=== PATIENT | female | born 2000 | race African-American/Black ===

== ENCOUNTER 2022-02-14 09:51 | Emergency (ER) | payer OTHER, SELFPAY ==
[2022-02-14 10:30] VITALS: BP 118/61; PULSE 54; RESP 14; TEMP 36.7; O2SAT 99; BMI 30.9
[2022-02-14] MEDS: ACETAMINOPHEN 325 MG TABLET 650 MG PO (10:42)
[2022-02-14] MEDS: PHENAZOPYRIDINE 100 MG TABLET PO (10:42)
[2022-02-14 11:41] LABS: RBC Urine None Seen (0-5/HPF); Squamous Epithelial Cell Urine 1-5 /HPF (0-5/HPF); WBC Urine 1-5/HPF (0-5/HPF)
[2022-02-14 11:42] LABS: Bacteria Urine None Seen; Culture Indicated Urine Cult Not Indicated; Mucus Urine 1+ (Negative)
[2022-02-14 13:58] VITALS: O2SAT 99
[2022-02-14 13:59] VITALS: BP 103/59; PULSE 53; RESP 20; O2SAT 98
[2022-02-14 14:00] VITALS: BP 103/59; PULSE 53; RESP 14; TEMP 36.7; O2SAT 98
--- NOTE | 2022-02-14 14:22 | ED_ITS ---
HPI - Female Genitourinary <MURRAY Cardenas - Last Filed: 02/14/22 16:40> General Chief complaint: Urogenital-Female Stated complaint: abd pain /burning when pee/ t-14 Time Seen by Provider: 02/14/22 11:10 Source: patient Mode of arrival: Ambulatory History of Present Illness HPI Narrative: This is a 21-year-old female presents to the emergency department with dysuria that started approximately 2 weeks ago. 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 Since that she had her menses and is not concerned about . She denies fever, chills, flank pain, abnormal stool, upper respiratory infection, or other symptom. Complains of vaginal itching and abnormal discharge. Denies any rash or injury. Related Data Previous Rx's Medication Instructions Recorded doxycycline hyclate 100 mg tablet 100 mg PO BID 14 days #28 tabs 02/14/22 metronidazole 0.75 % topical gel 1 applic topical BEDTIME #45 grams 02/14/22 Allergies Allergy/AdvReac Type Severity Reaction Status Date / Time No Known Drug Allergies Allergy Verified 02/14/22 10:34 Review of Systems <MURRAY Cardenas - Last Filed: 02/14/22 16:40> Review of Systems ROS Unobtainable: All systems reviewed & are unremarkable except as noted in HPI and below Patient History <MURRAY Cardenas - Last Filed: 02/14/22 16:40> alcohol intake frequency: holidays/special occasions only Substance Use Type: does not use Exam <MURRAY Cardenas - Last Filed: 02/14/22 16:40> Narrative Exam Narrative: Reviewed vitals signs and nursing notes. General: cooperative, comfortable, in no acute distress, well groomed HEENT: symmetrical facial expressions, moist mucous membranes GI: abdomen soft, nontender to palpation, nondistended, without masses, rebound tenderness or exquisite tenderness with exam. Contract Admin: Pelvic exam completed by myself, abnormal vaginal discharge, white, chunky, without foreign body, without odor or rash, without cervicitis, or intravaginal bleeding MSK: moves all extremities, neurovascularly intact, no weakness, normal tone Skin: brisk capillary refill, without pallor or erythema Neuro: normal speech and cognition, A&O x3, ambulatory, clear speech Psych: mental status is grossly normal, congruent mood, normal affect, pleasant and cooperative Initial Vital Signs Initial Vital Signs: Vital Signs Temperature 98.1 F 02/14/22 10:30 Pulse Rate 54 L 02/14/22 10:30 Respiratory Rate 14 02/14/22 10:30 Blood Pressure 118/61 02/14/22 10:30 Pulse Oximetry 99 02/14/22 10:30 Oxygen Delivery Method 02/14/22 10:30 <Delisa Stark DO - Last Filed: 02/21/22 14:41> Initial Vital Signs Initial Vital Signs: Vital Signs Temperature 98.1 F 02/14/22 10:30 Pulse Rate 54 L 02/14/22 10:30 Respiratory Rate 14 02/14/22 10:30 Blood Pressure 118/61 02/14/22 10:30 Pulse Oximetry 99 02/14/22 10:30 Oxygen Delivery Method 02/14/22 10:30 Course <MURRAY Cardenas - Last Filed: 02/14/22 16:40> Orders Ordered: Discontinued Medications Acetaminophen (Acetaminophen 325 Mg Tablet) 650 mg PO NOW ONE Stop: 02/14/22 10:40 Last Admin: 02/14/22 10:42 Dose: 650 mg Documented By: FREDERICK Ceftriaxone Sodium (Ceftriaxone 1,000 Mg Vial) 500 mg IM NOW ONE Stop: 02/14/22 14:22 Last Admin: 02/14/22 16:18 Dose: 500 mg Documented By: THANH Doxycycline Hyclate (Doxycycline Hyclate 100 Mg Tablet) 100 mg PO NOW ONE Stop: 02/14/22 14:22 Last Admin: 02/14/22 15:08 Dose: 100 mg Documented By: FREDERICK Lidocaine HCl (Lidocaine 1% (Pf) 5 Ml) 2.1 ml INJ NOW ONE Stop: 02/14/22 14:22 Last Admin: 02/14/22 16:18 Dose: 2.1 ml Documented By: THANH Metronidazole (Metronidazole 500 Mg Tablet) 500 mg PO NOW ONE Stop: 02/14/22 14:59 Last Admin: 02/14/22 15:09 Dose: 500 mg Documented By: FREDERICK Phenazopyridine HCl (Phenazopyridine 100 Mg Tablet) 100 mg PO NOW ONE Stop: 02/14/22 10:40 Last Admin: 02/14/22 10:42 Dose: 100 mg Documented By: FREDERICK Vital Signs Vital signs: Vital Signs - 8 hr 02/14/22 10:30 02/14/22 14:00 02/14/22 13:58 Temperature 98.1 F 98.1 F Pulse Rate 54 L 53 L Respiratory Rate 14 14 Blood Pressure 118/61 103/59 L Pulse Oximetry 99 98 99 Oxygen Delivery Method Room Air Room Air 02/14/22 13:59 02/14/22 13:59 Temperature Pulse Rate 53 L Respiratory Rate 20 Blood Pressure 103/59 L Pulse Oximetry 98 Oxygen Delivery Method Room Air <Delisa Stark DO - Last Filed: 02/21/22 14:41> Orders Ordered: Discontinued Medications Acetaminophen (Acetaminophen 325 Mg Tablet) 650 mg PO NOW ONE Stop: 02/14/22 10:40 Last Admin: 02/14/22 10:42 Dose: 650 mg Documented By: FREDERICK Ceftriaxone Sodium (Ceftriaxone 1,000 Mg Vial) 500 mg IM NOW ONE Stop: 02/14/22 14:22 Last Admin: 02/14/22 16:18 Dose: 500 mg Documented By: THANH Doxycycline Hyclate (Doxycycline Hyclate 100 Mg Tablet) 100 mg PO NOW ONE Stop: 02/14/22 14:22 Last Admin: 02/14/22 15:08 Dose: 100 mg Documented By: FREDERICK Lidocaine HCl (Lidocaine 1% (Pf) 5 Ml) 2.1 ml INJ NOW ONE Stop: 02/14/22 14:22 Last Admin: 02/14/22 16:18 Dose: 2.1 ml Documented By: THANH Metronidazole (Metronidazole 500 Mg Tablet) 500 mg PO NOW ONE Stop: 02/14/22 14:59 Last Admin: 02/14/22 15:09 Dose: 500 mg Documented By: FREDERICK Phenazopyridine HCl (Phenazopyridine 100 Mg Tablet) 100 mg PO NOW ONE Stop: 02/14/22 10:40 Last Admin: 02/14/22 10:42 Dose: 100 mg Documented By: FREDERICK Vital Signs Vital signs: Vital Signs - 8 hr 02/14/22 10:30 02/14/22 14:00 02/14/22 13:58 Temperature 98.1 F 98.1 F Pulse Rate 54 L 53 L Respiratory Rate 14 14 Blood Pressure 118/61 103/59 L Pulse Oximetry 99 98 99 Oxygen Delivery Method Room Air Room Air 02/14/22 13:59 02/14/22 13:59 Temperature Pulse Rate 53 L Respiratory Rate 20 Blood Pressure 103/59 L Pulse Oximetry 98 Oxygen Delivery Method Room Air MDM - Female Genitourinary <Xuan Freedman Eddieabdon, [employer] ENGINEER - Last Filed: 02/14/22 16:40> Lab Data Labs: Lab Results 02/14/22 02/14/22 Range/Units 10:44 10:44 Urine RBC None seen (0-5/HPF) Urine WBC 1-5/hpf (0-5/HPF) Ur Squamous Epith Cells 1-5 /hpf (0-5/HPF) Urine Bacteria None seen (None) Urine Mucus 1+ H (Negative) Ur Culture Indicated? 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 Her urine is negative for infection, wet prep was positive for clue cells. Gonorrhea and chlamydia is negative via PCR. Urine was negative so unlikely ectopic . Course of Care: Patient's UA is negative for leukocytes, RBCs, and nitrites, microscopy negative, urine was negative, wet prep is positive for moderate clue cells, on exam patient had abnormal discharge that was white, clumped, and more than usual. Patient wishes to have treatment while she remains in the emergency department since she does not have transportation otherwise. She received 1 dose of doxycycline and 1 dose of 500 mg of IM ceftriaxone for gonorrhea and chlamydia as the test took approximally 3 hours to result. Patient's symptoms improved over duration of stay with above-stated therapies. Differential diagnoses include, but are not limited to: Pelvic inflammatory disease, bacterial vaginosis, other STI, contact dermatitis, acute cystitis, ectopic . 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 She will call if the pharmacy is closed when she gets to [facility] and may return for additional medications as needed. Vital Signs: I, the ED provider, reviewed the patient?s vital signs, past medical records and encounters if available, and nursing notes. The emergency provider has spoken with the patient/family and discussed today?s findings whom verbalize understanding. Counseling was provided regarding the diagnosis and prognosis, and specific details were provided for the plan of care. Questions are addressed and there is agreement with the plan and for follow-up. Portions of this chart have been created with [employer] voice recognition software. Occasional wrong word or sound alike substitutions may have occurred due to the inherent limitations of this software. Provider: I, MURRAY Gatica, personally performed the services described in the documentation, and it accurately records my words and actions. I collaborated with the attending physician about care plans for ZUNILDA level 2, 3, and some 4s when applicable. Electronically signed by: MURRAY Gatica, POSTDOCTORAL SCHOLAR-C <Delisa Stark, - Last Filed: 02/21/22 14:41> Lab Data Labs: Lab Results 02/14/22 02/14/22 Range/Units 10:44 10:44 Urine RBC None seen (0-5/HPF) Urine WBC 1-5/hpf (0-5/HPF) Ur Squamous Epith Cells 1-5 /hpf (0-5/HPF) Urine Bacteria None seen (None) Urine Mucus 1+ H (Negative) Ur Culture Indicated? Cult not indicated Ur Chlamydia DNA (PCR) Not detected N gonorrhoeae DNA (PCR) Not detected Point of Care Testing Test Results Negative Urine Dip Bedside Urine Glucose Negative Bedside Urine Bilirubin - Negative Bedside Urine Ketone - Negative Urine Specific [place] 1.020 Bedside Urine Occult Blood - Negative Bedside Urine pH 6 Bedside Urine Protein - Negative Bedside Urine Urobilinogen - Negative Bedside Urine Nitrite - Negative Bedside Urine Leukocytes - Negative Esterase Discharge Plan Departure Patient Disposition: Home Clinical Impression: Bacterial vaginal infection, Dysuria Instructions: Bacterial Vaginosis, DI for Dysuria -- Adult Activity Restrictions/Additional Instructions: *You have been diagnosed with bacterial vaginosis. Please take Flagyl twice a day for the next 7 days, may use intravaginal treatment x1 or daily whichever is better. You were treated today for chlamydia and gonorrhea as well, I will prescribe for you medications if they come back positive however the tests are still pending. Please stay hydrated, empty her bladder frequently, there was no signs of a yeast infection today but if you develop symptoms of one please return for another exam or purchase an [id number] kit. Thank you for your patients today, I hope you feel better soon, have a great rest of your day. Please call [phone] and ask about your results tonight if you have not rec eived a call by this evening. Rosemary Nascimento, go have a good rest of your day.\ Take the printed prescription to the pharmacy you wish if your test is positive for chlamydia. *What to do: *Please continue to take your regular medications as directed. [ x] New medication prescriptions sent to your pharmacy: [[facility] ] [ ] New medication written as a paper prescription [ ] No new medications given *Please follow up with your primary care provider in 2-3 days, call for an appointment. Let them know you were seen in the Emergency Department and that we asked that you be seen for follow-up. We will electronically transmit a record of today's note if your PCP is in our system *If you do not have a primary care provider please contact [phone] to [facility] with one of the [facility] primary care providers. *Return to Emergency Department if you should have any new, worsening, or concerning symptoms, such as [fever greater than 101F, chills, worsening pain, persistent vomiting or other bothersome symptoms]. Prescriptions: New metronidazole 0.75 % gel 1 applic topical BEDTIME Qty: 45 0RF doxycycline hyclate 100 mg tablet 100 mg PO BID 14 Days Qty: 28 0RF Referrals: Miscellaneous,Doctor, [Primary Care Provider] - Stand Alone Forms: Work Release Note Visit Report Forms: Patient Portal/API <Delisa Stark DO - Last Filed: 02/21/22 14:41> Cosign ED Attending Lorinature Attestation: I was immediately available in the department for consultation. Documentation has been reviewed.
[2022-02-14] MEDS: DOXYCYCLINE HYCLATE 100 MG TABLET PO (15:08)
[2022-02-14] MEDS: metroNIDAZOLE 500 MG TABLET PO (15:09)
[2022-02-14] MEDS: cefTRIAXone 1,000 MG VIAL 500 MG IM (16:18)
[2022-02-14] MEDS: LIDOCAINE 1% (PF) 5 ML 2.1 ML INJ (16:18)
[2022-02-14 16:24] LABS: Urine N gonorrhoeae NOT DETECTED
[2022-02-14 16:25] LABS: Urine Chlamydia NOT DETECTED
== END 2022-02-14 16:37 | disposition home or self-care (01) ==
PROVIDERS: Emergency Medicine; Emergency Provider Nurse Practitioner Critical Care Medicine
DX: N76.0 Acute vaginitis (principal); R30.0 Dysuria
CPT/HCPCS: 81003; 81015; 81025; 87210; 87491; 87591; 96372; 99283; J0696